=== PATIENT | female | born 1970 | race Caucasian/White ===

== ENCOUNTER → 2017-05-25 | Outpatient (CLI) | payer BC ==
[~2017-05-25] MED LIST: AMIT25TA9 PO; CYCL10TA9 PO; DEPO-PROVERA; HYDR25TA4 PO; MEDR150D4 IM; METH5TAB5 PO; NAPR-243 PO; PRAV40TA PO; PROP120C21 PO; TRM50T PO
--- NOTE | 2017-05-25 13:53 | Diagnostic Imaging Report ---
AP view of the pelvis and bilateral hip AP and frog lateral views are obtained. INDICATION: Bilateral hip pain, more intense on the right side. FINDINGS: The pelvic x-ray demonstrate symmetric SI and hip joints with no significant abnormality. The right hip demonstrate no fracture, dislocation or radiopaque foreign body. No significant arthritic changes. The left hip radiographs appear unremarkable. Calcification seen in the right side of the pelvis is compatible with a phlebolith. IMPRESSION: Unremarkable exam. Dictated by: Dictated on workstation # [id number]
== END ==
LOC: RAD 12:17
PROVIDERS: ATTEND Family Medicine
DX: M25.551 Pain in right hip (principal); M25.552 Pain in left hip; M06.9 Rheumatoid arthritis, unspecified
CPT/HCPCS: 73523

== ENCOUNTER → 2017-12-02 | Outpatient (CLI) | payer BC ==
--- NOTE | 2017-12-02 15:26 | Diagnostic Imaging Report ---
CLINICAL INDICATION: Patient with hypothyroidism. COMPARISONS: Thyroid ultrasound dated 02/18/2016 and fine needle aspiration of a left thyroid gland inferior mass. FINDINGS: THYROID NODULES: There is a 2.4 cm x 2.1 cm x 2.3 cm slightly heterogeneous hypoechoic nodule involving the inferior pole of the left thyroid gland with minimal central Doppler flow. There is no other thyroid nodules seen. This thyroid nodule previously measured 2.7 cm x 1.9 cm x 2.2 cm. THYROID GLAND: Besides the thyroid nodule, the thyroid gland has normal size, shape and echogenicity. The right lobe measures 5.6 cm x 2.3 cm x 2.0 cm and the left lobe measures 6.2 cm x 2.0 cm x 2.2 cm in their three dimensions. ISTHMUS: The isthmus is unremarkable and measures 4 mm in thickness. IMPRESSION: 1. Interval slight decreased size of the 2.4 cm inferior left thyroid gland nodule. Otherwise remainder of the thyroid gland exam is unremarkable. Dictated by: Dictated on workstation # [id number]
== END ==
LOC: RAD 12:17
PROVIDERS: ATTEND Internal Medicine Endocrinology, Diabetes & Metabolism
DX: E05.90 Thyrotoxicosis, unspecified without thyrotoxic crisis or storm (principal); E04.1 Nontoxic single thyroid nodule
CPT/HCPCS: 76536

== ENCOUNTER → 2018-03-15 | Outpatient (CLI) | payer BC ==
--- NOTE | 2018-03-16 19:43 | Diagnostic Imaging Report ---
INDICATION: Screening. At this time there are no current complaints. EXAMINATION: Bilateral digital screening mammogram with CAD. 3D tomographic images were obtained and reviewed. The current study was also evaluated with a Computer Aided Detection (CAD) system. COMPARISON: This study was compared to the prior exams of 04/30/2010. FINDINGS: The fibroglandular tissue in both breasts is dense. This does limit the sensitivity of this exam. Overall, there does not appear to have been any significant change when compared to the prior study. No primary or secondary sign of malignancy is noted. IMPRESSION: 1. There is no evidence for malignancy. 2. The patient should have her annual screening mammogram on schedule in March of 2019. ACR BI-RADS Category 1: Negative. Result letter will be mailed to the patient. Note: At least 10% of breast cancer is not imaged by mammography. Dictated by: Dictated on workstation # [id number]
--- NOTE | 2018-03-23 13:57 | RADIOLOGY REPORT ---
NAME: GRADY DELANEY [facility] REC#: [id number] PT STATUS: PRE CLI : 1970 PHYSICIAN: STEWART IQBAL MD ADMIT DATE: 03/09/18/RAD CORRECTED Signed Date of Exam:03/15/18 US SOFT TISSUE HEAD&NECK [id number] INDICATION: Lump in the left supraclavicular region. TECHNIQUE/FINDINGS: Sonographic interrogation of the area of lump in the left subclavicular region was performed. There is a small lymph node at this location measuring 9 mm x 6 mm x 7 mm. No other masses are seen. IMPRESSION: Normal-sized lymph node in the left supraclavicular region corresponding to the patient's palpable lump. Dictated by: Dictated on workstation # [id number] Dict: 03/15/18 1048 Trans: 03/15/18 1526 [id number] Interpreted by: PEGGY DOE MD Electronically signed by: PEGGY DOE MD 03/15/18 1526 MTDD
== END ==
LOC: RAD 09:00
PROVIDERS: ATTEND Family Medicine
DX: Z12.31 Encounter for screening mammogram for malignant neoplasm of breast (principal); R22.1 Localized swelling, mass and lump, neck
CPT/HCPCS: 76536; 77067

== ENCOUNTER 2020-02-28 09:30 | Outpatient (RCR) | payer BC | END 2020-05-28 | disposition home or self-care (01) | LOC: ONC 09:30 | PROVIDERS: ATTEND Radiology Radiation Oncology | DX: E05.90 Thyrotoxicosis, unspecified without thyrotoxic crisis or storm (principal); F32.9 Major depressive disorder, single episode, unspecified; I10 Essential (primary) hypertension; M19.90 Unspecified osteoarthritis, unspecified site; E78.00 Pure hypercholesterolemia, unspecified; M79.7 Fibromyalgia; Z87.891 Personal history of nicotine dependence; Z79.899 Other long term (current) drug therapy; Z91.012 Allergy to eggs; Z91.011 Allergy to milk products; Z91.018 Allergy to other foods; Z91.048 Other nonmedicinal substance allergy status | CPT/HCPCS: 99204 ==

== ENCOUNTER → 2020-03-06 | Outpatient (CLI) | payer BC | LOC: CARD 09:11 | PROVIDERS: ATTEND Radiology Radiation Oncology | DX: E05.90 Thyrotoxicosis, unspecified without thyrotoxic crisis or storm (principal) | CPT/HCPCS: 79005; A9517 ×2 ==

== ENCOUNTER → 2020-05-14 | Outpatient (CLI) | payer BC ==
--- NOTE | 2020-05-14 12:15 | Diagnostic Imaging Report ---
INDICATION: Right knee pain AP, oblique, and lateral views of the right knee are obtained. No fracture or acute bony abnormality seen. There is mild medial joint space narrowing with osteophyte formation. IMPRESSION: Mild degenerative change of the right knee with no acute abnormality. Dictated by: Dictated on workstation # [id number]
== END ==
LOC: RAD 11:27
PROVIDERS: ATTEND Family Medicine
DX: M25.461 Effusion, right knee (principal); M17.11 Unilateral primary osteoarthritis, right knee
CPT/HCPCS: 73562

== ENCOUNTER → 2021-03-18 | Outpatient (CLI) | payer BC ==
--- NOTE | 2021-03-18 14:55 | Diagnostic Imaging Report ---
PROCEDURE: US Thyroid. TECHNIQUE: Multiple real-time grayscale images were obtained of the thyroid in various projections. INDICATION: Thyroid nodules COMPARISON: 12/02/2017 FINDINGS: The right lobe of the thyroid gland measures 4.2 x 1.1 x 1.0 cm. It demonstrates a mildly heterogeneous echotexture without discrete nodule. The right lobe of thyroid gland measures 3.7 x 1.0 x 0.9 cm. Demonstrates a mildly heterogeneous echotexture without discrete nodule. Previously noted nodule involving the inferior aspect of the right thyroid lobe is no longer visualized. The isthmus is heterogeneous, though otherwise unremarkable. IMPRESSION: No discrete thyroid nodule identified with interval resolution/decrease in size of previously noted solid left thyroid nodule, which is no longer visualized. The thyroid gland has diffusely decreased in size since the prior examination in 2018. Dictated by: Dictated on workstation # [id number]
== END ==
LOC: RAD 12:45
PROVIDERS: ATTEND Internal Medicine Endocrinology, Diabetes & Metabolism
DX: E04.2 Nontoxic multinodular goiter (principal)
CPT/HCPCS: 76536

== ENCOUNTER → 2021-03-18 | Outpatient (CLI) | payer BC ==
--- NOTE | 2021-03-18 14:57 | Diagnostic Imaging Report ---
Indication: Routine screening. Comparison is made with prior mammogram 03/15/2018. 2-D and 3-D bilateral screening mammography was performed with CAD. Both breasts are heterogeneously dense, limiting the sensitivity of mammography. No dominant mass or malignant appearing microcalcifications are seen. Benign nodule in the outer right breast stable and likely intraparenchymal lymph node. Axillae are unremarkable. IMPRESSION: BI-RADS Category 2 No mammographic features suspicious for malignancy are identified. ACR BI-RADS Category 2: Benign findings. Result letter will be mailed to the patient. Note: At least 10% of breast cancer is not imaged by mammography. Dictated by: Dictated on workstation # [id number]
== END ==
LOC: RAD 12:37
PROVIDERS: ATTEND Family Medicine
DX: Z12.31 Encounter for screening mammogram for malignant neoplasm of breast (principal)
CPT/HCPCS: 77063; 77067